=== PATIENT | female | born 1960 | race Caucasian/White ===

== ENCOUNTER 2017-01-03 10:37 | Day surgery (SDC) | payer OTHER ==
[~2017-01-03] VITALS: Ht 144.8 cm; Wt 82.5 kg
[~2017-01-03 10:37] MED LIST: LEVO50TA71 PO; TRAM50TA2 PO
[2017-01-03 10:56] VITALS: Ht 144.8 cm; Wt 82.5 kg
[2017-01-03] MEDS ORDERED: GABA300C16 PO (11:08)
[2017-01-03] MEDS ORDERED: OMEP20CA16 PO (11:08)
[2017-01-03] MEDS ORDERED: PARO10TA76 PO (11:08)
[2017-01-03] MEDS ORDERED: [UNRECOGNIZED DRUG - OTHER] (11:08)
[2017-01-03] MEDS ORDERED: [UNRECOGNIZED DRUG - CODE] MC (11:08)
[2017-01-03] MEDS ORDERED: AMIT50TA3 PO (11:08)
[2017-01-03] MEDS ORDERED: LISI20TA11 PO (11:08)
[2017-01-03 11:33] VITALS: BP 112/56; PULSE 62; RESP 12
[2017-01-03] MEDS ORDERED: LIDOCAINE 2% (SDV) 5 ML INJ ONE ×2 (11:35)
[2017-01-03] MEDS ORDERED: LIDOCAINE 4% SOLUTION 50 ML BTL ONE (11:36)
--- NOTE | 2017-01-03 11:52 | OPPN ---
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
[2017-01-03] MEDS ORDERED: MIDAZOLAM 1 MG/ML 2 ML INJ ONE (12:00)
[2017-01-03] MEDS ORDERED: FENTAnyl 50 MCG/ML VIAL ONE (12:01)
[2017-01-03 12:14] VITALS: BP 130/77; RESP 17
--- NOTE | 2017-01-06 07:21 | GILP ---
DATE OF PROCEDURE: PROCEDURE: Esophagogastroduodenoscopy. PREOPERATIVE DIAGNOSIS: Patient presenting with history of chronic abdominal pain, rule out peptic ulcer disease. The pain is not responding to routine therapy, rule out esophagitis as well. POSTOPERATIVE DIAGNOSES: Mild diffuse esophagitis and mildly diffuse gastritis. DESCRIPTION OF PROCEDURE: After informed written consent was obtained, the patient was asked to lie on the left lateral side, 3 mg Versed and 50 mcg of fentanyl was given as intravenous anesthesia. When the patient became somnolent, the Olympus video upper endoscope was introduced into the orophar ynx, then into the esophagus. The esophagus showed evidence of a diffuse erythema in a milder degre e. Multiple biopsies were obtained to rule out esophagitis. Scope at this time was advanced into t he stomach. Multiple areas of mild erythema noted in the stomach indicating mild diffuse gastritis. Biopsy was done from the antrum, the lesser curvature and the fundus to rule out H. pylori infecti on. Duodenum appeared normal up to the end of the third portion. Endoscope at this time was withdr awn and the procedure was terminated. PLAN: Change omeprazole to Nexium 40 mg once a day before breakfast and meanwhile wait for the path ology report. Dictated By: RENNY BAIRES/BA Conf#: [id number] DID#: [id number]
== END 2017-01-03 12:08 | disposition home or self-care (01) ==
LOC: GIL 10:37
PROVIDERS: ATTEND Internal Medicine Gastroenterology
DX: R10.9 Unspecified abdominal pain (principal); G89.29 Other chronic pain; I10 Essential (primary) hypertension; K29.50 Unspecified chronic gastritis without bleeding; K20.8 Other esophagitis
CPT/HCPCS: 43239; 88305; 88312; 88313; J2250; J3010; Z7610

== ENCOUNTER 2017-11-28 06:22 | Day surgery (SDC) | END 2017-11-28 10:51 | disposition home or self-care (01) ==